=== PATIENT | female | born 1965 | race Caucasian/White ===

== ENCOUNTER 2018-09-12 08:54 | Day surgery (SDC) | payer BC ==
[~2018-09-12 08:54] MED LIST: Buffered Lidocaine 1% SYRIN* 1 ML/SYRINGE INTRADERM ONE; Lactated Ringers 1000 ML Bag* 1,000 ML IV SCH
[2018-09-12] MEDS ORDERED: ceFAZolin 2 GM in NS PREMIX(*) 0 GM/0 ML BAG IVPB ONE (09:09)
[2018-09-12] MEDS ORDERED: Buffered Lidocaine 1% SYRIN* 1 ML/SYRINGE INTRADERM ONE ×2 (09:09→09:32)
[2018-09-12] MEDS ORDERED: ceFAZolin 2 GM in NS PREMIX(*) 2 GM/100 ML BAG IVPB ONE (09:32)
[2018-09-12] MEDS ORDERED: Midazolam* 1 MG/ML 2 ML VIAL (2 MG) ONE (10:50)
[2018-09-12] MEDS ORDERED: fentaNYL* 50 MCG/ML 2 ML VIAL (100 MCG VIAL) ONE ×2 (10:50→14:52)
[2018-09-12] MEDS ORDERED: EPINEPHRINE 1 MG/ML 1 ML VIAL ONE (11:57)
[2018-09-12] MEDS ORDERED: Bupivacaine 0.5%* 50 ML VIAL ONE (11:58)
[2018-09-12] MEDS ORDERED: Ondansetron INJ* 2 MG/ML VIAL ONE (12:53)
[2018-09-12] MEDS ORDERED: Dexamethasone IV* 4 MG/ML 1 ML (4 MG) ONE (12:53)
[2018-09-12] MEDS ORDERED: Lidocaine 2% PF * 5 ML VIAL ONE (12:53)
[2018-09-12] MEDS ORDERED: Propofol* 10 MG/ML 20 ML BTL ONE (12:53)
[2018-09-12] MEDS ORDERED: Ketorolac INJ* 30 MG/ML 1 ML VIAL ONE (12:53)
[2018-09-12] MEDS ORDERED: Naloxone* 0.4 MG/ML 1 ML VIAL IV PRN (13:23)
[2018-09-12] MEDS ORDERED: Scopolamine 1.5 mg* PATCH TRANSDERM PRN (13:23)
[2018-09-12] MEDS ORDERED: Metoclopramide IV* 5 MG/ML 2 ML VIAL IV PRN (13:23)
[2018-09-12] MEDS ORDERED: PROCHLORPERAZINE INJ 5 MG/ML 2 ML VIAL IV PRN (13:23)
[2018-09-12] MEDS ORDERED: oxyCODONE TAB* 5 MG TAB ONE (15:02)
[2018-09-12] MEDS ORDERED: PROCHLORPERAZINE INJ 5 MG/ML 2 ML VIAL ONE (15:04)
[2018-09-12] MEDS ORDERED: Scopolamine 1.5 mg* PATCH ONE (15:07)
[2018-09-12 16:09] VITALS: BP 146/84
--- NOTE | 2018-09-13 11:39 | OP ---
OPERATIVE NOTE: DATE OF OPERATION: 09/12/18 DATE OF : 63 SURGEON: Dr. Herman Sidhu. COMPANY MARKER: MIKO Rowe A physician medical staff assistant was required for the length of the procedure for assistance with positioning, i nstrumentation, and closure. ANESTHESIOLOGIST: Dr. Sarah Zendejas. ANESTHESIA: General anesthesia, regional interscalene block anesthesia, local anesthesia with 10 cc of Marcaine with epinephrine at the open biceps incision site. PRE-OP DIAGNOSES: 1. Right shoulder subacromial impingement. 2. Right shoulder acromioclavicular joint osteoarthritis. 3. Right shoulder rotator cuff tendinitis, possible tear. 4. Right shoulder possible proximal biceps tendinitis, possible superior labrum tear. POST-OP DIAGNOSES: 1. Right shoulder subacromial bursitis and impingement. 2. Right shoulder acromioclavicular joint osteoarthritis. 3. Right shoulder superior labrum tear. 4. Right shoulder, no rotator cuff tear. OPERATIVE PROCEDURE: 1. Right shoulder arthroscopic subacromial decompression. 2. Right shoulder arthroscopic distal clavicle resection. 3. Right shoulder arthroscopic evaluation of the rotator cuff. 4. Right shoulder open proximal biceps tenodesis, subpectoral. ANTIBIOTICS: Ancef 2 g IV. IV FLUIDS: 1700 cc crystalloid. WONF-GN-KOSV TIME: 71 minutes. SPECIMEN: None. IMPLANTS: Arthrex proximal biceps button x1. ARTHROSCOPY FLUID: 3.5 bags each with 3 L for a total of 10.5 L of fluid. COMPLICATIONS: None. ESTIMATED BLOOD LOSS: Minimal. INDICATIONS FOR PROCEDURE: The patient is a 53-year-old woman, right-hand dominant, who has traveled with right shoulder pain since June 2017, for over a year. She injured herself while [place] with a specific fall. The patient was treated with a cortisone injection. She improved b ut the pain recurred in October or November 2017. Two MRIs were obtained. The patient did a long course of physical therapy. The patient improved mostly but still struggles with pain. The patient presented with x-rays and MRI, which showed evidence of an acromial spur, AC joint arthri tis, possible superior labral tear, question of interstitial tear of rotator cuff far from the distal insertion as well as some rotator cuff tendinitis. Discussed surgery with the patient and recovery. Discussed risks and potential complications. DESCRIPTION OF PROCEDURE: In preoperative holding, the patient signed a written consent. Operative extremity was marked in preoperative holding. The patient underwent an interscalene regional nerve b lock by Dr. Zendejas in preoperative holding. The patient was taken back to the operating room and plac ed supine on the operating room table. Sedated and intubated. Transferred to the lateral decubitus position, right shoulder up. Beanbag hardened. Axillary roll p laced. All bony prominences padded. Longitudinal traction of the shoulder with 10 pounds in the prasanth ropriate amount of forward flexion and abduction. Right shoulder was prepped and draped. Surgical t shaka-out performed. Entered spinal needle into the posterior aspect of the glenohumeral joint and infused 30 cc. Establi shed posterior glenohumeral joint portal. Started diagnostic arthroscopy. No rotator cuff tear. Ev aluated all 4 tendons. No articular cartilage damage. Did note some apparent injury to the superior labrum. Established an anterior glenohumeral joint portal under direct visualization. Probed superior labrum. There seemed to be a superior labral tear with instability, with superior laxity. I smoothed the s uperior labrum out with an arthroscopic shaver and tear was still clearly present. Decided therefore to cut the biceps and perform tenodesis. Entered arthroscopic scissors from anterior and cut the biceps near its origin. Smoothed down any junior mp of the superior labrum with an arthroscopic shaver. Hold all instruments and fluid from glenohumeral joint and moved to the subacromial space. Entered f rom anterior and posterior. Encountered bursitis. Established lateral and then posterolateral cynthia ls. Debrided bursitis with an arthroscopic shaver. Debrided undersurface of the acromion with VAPR device. Visualized the rotator cuff well through posterolateral portal. No rotator cuff tear evident. I pro bed it with a switching stick and a probe. No tear partial thickness or full thickness palpated or v isualized. Decided no rotator cuff repair needed. Addressed the anterior acromion. Using an arthroscopic bur from lateral to smooth down the anterior aspect of the acromion by removing anterior curve of acromion. I next moved to the AC joint. Debrided synovitis with a VAPR. Then, I removed 8 mm of the distal en d of the clavicle with an arthroscopic bur. A clear circumferential removal of bone performed. I moved back to the acromion and removed a little bit more of the anterior hook of the acromion. Acr omion was clearly very flat and not curved at this point. Removed instruments and fluid from subacromial space. Closed skin incisions with [id number] sti tches using nylon 3-0 suture. Softened the bag, turned the patient into a nearly supine position, and hardened bag again. Made a very short skin incision anteromedial upper arm. Dissected down to bicipital groove. Retract ors placed. Removed long head of biceps. Placed Beath pin. Placed FiberLoop suture 4 stitches in l don head biceps tendon. I next fed the biceps button. I placed the button and then flipped it. Tie d a knot. I then placed another stitch using a free needle and tied a knot. Removed excess suture a nd tendon with knife. Irrigation. Closure of the subcutaneous tissue with buried simple stitches us ing Vicryl 3-0 suture. Closure of the subcuticular layer with a running Monocryl stitch. Benzoin an d then Steri-Strips. 4x4, cut to size and a Tegaderm. Arthroscopy skin incisions closed with Xerofo rm, 4x4s, ABDs, and foam tape. The patient placed in a sling without abduction pillow. Awakened, ex tubated and brought to the PACU. DISPOSITION: The patient was discharged home when medically stable. Percocet as needed for pain con trol. I placed the patient on 7 days of Keflex. I did this because it should be noted that the william ent had a skin biopsy done in the weeks prior to surgery. There was some concern by nursing, then I looked at that wound preoperatively. I did in preoperative holding. There had been some removal of a small skin lesion. There is some erythema around that site. There was no tenderness. It looked l gaston inflammation rather than any infection. This was not in the line of any of my incisions but was rather over the superior shoulder. It was close to the anterior plane to anterior incision. I discu ssed the theoretical risk of increased infection, but I was comfortable proceeding with surgery as wa s the patient. It should be noted that when I prepped and draped the patient, I placed Ioban over th at site just in case for somatic protection. As well the antibiotics postoperatively would be purely for prophylaxis given this recent biopsy here. No clear cellulitis or infection preoperative. The patient will take Keflex t.i.d. x7 days postoperatively. The patient will be in a sling for 2 weeks because I did a biceps tenodesis. She will start physical therapy immediately. Wound care instructio ns provided. She will follow up with me in 10 to 14 days postoperatively. [id number]/[facility] #: [id number]
== END 2018-09-12 18:17 | disposition home or self-care (01) ==
LOC: OR 08:54
PROVIDERS: ATTEND Orthopaedic Surgery
DX: S46.011A Strain of muscle(s) and tendon(s) of the rotator cuff of right shoulder, initial encounter (principal); M75.21 Bicipital tendinitis, right shoulder; M75.51 Bursitis of right shoulder; M65.811 Other synovitis and tenosynovitis, right shoulder; I10 Essential (primary) hypertension; F10.21 Alcohol dependence, in remission; Z87.891 Personal history of nicotine dependence; W00.0XXA Fall on same level due to ice and snow, initial encounter; Y93.24 Activity, cross country skiing; Y92.838 Other recreation area as the place of occurrence of the external cause
CPT/HCPCS: 81025; A9270-GY; C1776; J0690; J0780; J1100; J1885; J2250; J2405; J2704; J3010